=== PATIENT | male | born 1955 | race Caucasian/White ===

== ENCOUNTER → 2018-03-03 | Outpatient (CLI) | payer OTHER | LOC: CAT 07:54 | DX: Z13.6 Encounter for screening for cardiovascular disorders (principal); E78.00 Pure hypercholesterolemia, unspecified ==

== ENCOUNTER → 2018-04-07 | Outpatient (CLI) | payer OTHER ==
--- NOTE | 2018-04-07 12:51 | 2DMMODE ---
[facility] [address] [place] [address] 2 D/M-MODE ECHOCARDIOGRAM Name: LENNY DURANT Room #: REG [facility]#: [id number] Admission: 04/07/18 Attend Phys: Dax Scott Discharge: Date of : 51 Date of Service: 04/07/18 1250 Report #: [id number] THIS REPORT FOR: //name// APPROVED REPORT Study performed: 04/07/2018 11:05:47 EXAM: Comprehensive 2D, Doppler, and color-flow Echocardiogram Patient Location: Out-Patient Room #: Echo lab 2 Status: routine BSA: 2.17 HR: 66 bpm BP: 138/86 mmHg Rhythm: NSR Other Information Study Quality: Good Indications CAD 2D Dimensions RVDd: 44.05 mm IVSd: 7.97 (7-11mm) LVOT Diam: 21.40 (18-24mm) LVDd: 45.59 mm PWd: 10.95 (7-11mm) Ascending Ao: 35.26 (22-36mm) LVDs: 28.95 (25-40mm) Aortic Root: 36.22 mm IVC: 17.00 mm Volumes Left Atrial Volume (Systole) Single Plane 4CH: 48.30 mL Single Plane 2CH: 47.27 mL LA ESV Index: 25.00 mL/m2 Aortic Valve AoV Peak Nagi.: 1.21 m/s AO Peak Gr.: 5.83 mmHg LVOT Max P.25 mmHg LVOT Max V: 1.15 m/s [place] Vmax: 3.41 cm2 Mitral Valve E/A Ratio: 0.8 MV Decel. Time: 337.46 ms MV E Max Nagi.: 0.50 m/s [facility] [address] [place] [address] 2 D/M-MODE ECHOCARDIOGRAM Name: CARLEENCORNELKENTON SILVERMAN Room #: [facility]#: [id number] Admission: 04/07/18 Attend Phys: Dax Scott Discharge: Date of : 51 Date of Service: 04/07/18 1250 Report #: [id number] MV A Nagi.: 0.66 m/s MV PHT: 97.86 ms IVRT: 152.25 ms Pulmonary Valve PV Peak Nagi.: 1.05 m/s PV Peak Gr.: 4.44 mmHg Pulmonary Vein P Vein S: 0.36 m/s P Vein A: 0.31 m/s P Vein D: 0.24 m/s P Vein A Dur.: 143.0 msec P Vein S/D Ratio: 1.50 Tricuspid Valve TR Peak Nagi.: 2.81 m/s TR Peak Gr.: 31.49 mmHg PA Pressure: 36.00 mmHg Left Ventricle The left ventricle is normal size. There is normal LV segmental wall motion. There is normal left ventricular wall thickness. The left ventricular systolic function is normal. The left ventricular ejection fraction is within the normal range. LVEF is 60-65%. Right Ventricle The right ventricle is normal size. The right ventricular systolic function is normal. Atria The left atrium size is normal. Right atrium is mildly dilated. Aortic Valve The aortic valve is normal in structure. No aortic regurgitation is present. There is no aortic valvular stenosis. Mitral Valve The mitral valve is normal in structure. Trace mitral regurgitation. No evidence of mitral valve stenosis. Tricuspid Valve The tricuspid valve is normal in structure. There is trace tricuspid regurgitation. Estimated PAP 36 mmHg. There is mild pulmonary hypertension. Pulmonic Valve The pulmonary valve is normal in structure. Trace pulmonic [address] [address] 2 D/M-MODE ECHOCARDIOGRAM Name: LENNY DURANT HERRERA Room #: REG Rip#: [id number] Admission: 04/07/18 Attend Phys: Dax Scott Discharge: Date of : 51 Date of Service: 04/07/18 1250 Report #: [id number] regurgitation. Great Vessels The aortic root is normal in size. IVC is normal in size and collapses >50% with inspiration. Pericardium Trace pericardial effusion. <Conclusion> The left ventricle is normal size. LVEF is 60-65%. Right atrium is mildly dilated. The aortic valve is normal in structure. No aortic regurgitation is present. There is no aortic valvular stenosis. The mitral valve is normal in structure. Trace mitral regurgitation. The tricuspid valve is normal in structure. The pulmonary valve is normal in structure. Trace pulmonic regurgitation. The aortic root is normal in size. Trace pericardial effusion. <ELECTRONICALLY SIGNED> By: Flynn Suh MD 04/07/18 1250 1250 1250 Flynn Suh MD /INF
== END ==
LOC: CV 10:58
DX: I27.20 Pulmonary hypertension, unspecified (principal); I25.10 Atherosclerotic heart disease of native coronary artery without angina pectoris; I49.3 Ventricular premature depolarization; R93.1 Abnormal findings on diagnostic imaging of heart and coronary circulation; R00.2 Palpitations

== ENCOUNTER → 2018-04-09 | Outpatient (CLI) | payer OTHER | LOC: NUC 08:39 | DX: I25.10 Atherosclerotic heart disease of native coronary artery without angina pectoris (principal); I49.3 Ventricular premature depolarization; R93.1 Abnormal findings on diagnostic imaging of heart and coronary circulation; E78.5 Hyperlipidemia, unspecified ==